=== PATIENT | female | born 1960 | race Caucasian/White ===

== ENCOUNTER → 2017-06-06 | Outpatient (CLI) | payer BC ==
[~2017-06-06] VITALS: Ht 170.2 cm; Wt 120.2 kg
[2017-06-06] VITALS (7 sets, daily range): BP systolic 126–198; BP diastolic 69–105
== END ==
LOC: COP 06:00
PROVIDERS: Internal Medicine Adolescent Medicine
DX: L03.032 Cellulitis of left toe (principal); B95.62 Methicillin resistant Staphylococcus aureus infection as the cause of diseases classified elsewhere; Z89.422 Acquired absence of other left toe(s)

== ENCOUNTER → 2017-07-04 | Outpatient (CLI) | payer BC ==
[~2017-07-04] MED LIST: BACTRIM DS 8001 TAB PO; CUBICIN 500 MG500 MG IV; GLIPIZIDE10 MG PO; GLUCOPHAGE 850850 MG PO; HCTZ/LISINOPRIL1 TA3 PO; INSULIN GL100 UNITS/ SC; JANUMET XR1 TER PO; LISINOPRIL 10MG10 MG PO; LISINOPRIL AND1 TAB PO; METFORMIN500 MG PO; NOVOLOG MI100 UNITS/ SC; NOVOLOG MIX 70/10 M1 SC; OLANZAPINE10 MG PO; OLANZAPINE15 MG PO; OMNICEF 300 MG300 MG PO; PERCOCET1 TA1 PO; POTASSIUM CHLO20 ME2 PO; POTASSIUM600 MG; TRAZODONE50 MG PO; TRESIBA FL100 UNIT/1 SQ; VENLAFAXINE HCL75 MG PO; WELLBUTRIN SR100 MG PO; ZYPREXA15 MG PO
== END ==
LOC: COP 08:00
DX: L03.032 Cellulitis of left toe (principal); B95.62 Methicillin resistant Staphylococcus aureus infection as the cause of diseases classified elsewhere; Z89.422 Acquired absence of other left toe(s); Z45.2 Encounter for adjustment and management of vascular access device; Z48.00 Encounter for change or removal of nonsurgical wound dressing
CPT/HCPCS: G0463

== ENCOUNTER 2017-07-15 15:54 | Outpatient (CLI) | payer BC | END 2017-07-15 16:12 | disposition home or self-care (01) | LOC: COP 15:54 | DX: L03.032 Cellulitis of left toe (principal) | CPT/HCPCS: G0463 ==